=== PATIENT | male | born 1965 | race Caucasian/White ===

== ENCOUNTER → 2023-12-29 16:34 | Outpatient (BNVA) | payer SELFPAY | PROVIDERS: Visit Provider Nurse Practitioner Family | DX: N19 Unspecified kidney failure (principal) | CPT/HCPCS: 80053; 80074; 83880; 85025 ==

== ENCOUNTER 2023-12-31 11:23 | Inpatient (IN) | payer MEDICARE, SELFPAY ==
[2023-12-31] VITALS (7 sets, daily range): BP systolic 152–193; BP diastolic 93–154; PULSE 79–98; RESP 13–31; TEMP 36.5–37.1; O2SAT 92–99; BMI 22.6
--- NOTE | 2023-12-31 11:37 | ECG_ITS ---
[facility] Test Date: 2023-12-31 Pat Name: Filipe Gregory Department: Room: Gender: Male Transport Manager: : 1965 Requested By: Patricia Alva Order Number: [id number] Galilea MD: Lucien Pires M.D. Measurements Intervals [place] Rate: 91 P: 67 CA: 139 QRS: 21 QRSD: 102 T: 128 QT: 419 QTc: 516 Interpretive Statements SINUS RHYTHM POSSIBLE RIGHT ATRIAL ENLARGEMENT [0.25mV P-WAVE] LEFT ATRIAL ENLARGEMENT [-0.15mV P-WAVE IN V1/V2] LEFT VENTRICULAR HYPERTROPHY AND ST-T CHANGE [VOLTAGE CRITERIA PLUS ST/T ABNORMALITY] POSSIBLE SEPTAL MYOCARDIAL INFARCTION , OF INDETERMINATE AGE [30 ms Q WAVE IN V1/V2] No previous ECG available for comparison Electronically Signed On 01-02-2024 13:29:13 CDT by Lucien Pires M.D. [id number]
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
[2023-12-31 11:59] LABS: Basophils # 0.1 10^3/uL (0.0-0.1); Basophils % 0.9 %; Eosinophils # 0.2 10^3/uL (0.0-0.8); Eosinophils % 2.1 %; Hematocrit 41.5 % (37-53); Lymphocytes # 2.1 10^3/uL (0.8-4.8); Lymphocytes % 23.6 %; Mean Corpuscular HGB Conc 34.2 g/dL (30-55); Mean Corpuscular Hemoglobin 29.5 pg (27-33); Mean Corpuscular Volume 86.1 fl (82-101); Mean Platelet Volume 9.4 fL (7.4-10.4); Monocytes # 0.5 10^3/uL (0.2-0.9); Monocytes % 5.1 %; Neutrophils # 5.98 10^3/uL (1.8-7.7); Neutrophils % 68.1 %; Nucleated Red Blood Cells % 0 %; Platelet Count 329 10^3/cmm (157-399); Red Blood Count 4.82 10^6/uL (3.85-5.65); Red Cell Distribution Width 13.9 % (12.1-15.1); White Blood Count 8.78 10^3/uL (3.29-11.43)
[2023-12-31 12:12] LABS: INR 0.88 (0.8-1.2)
[2023-12-31 12:18] LABS: Troponin(5th) Baseline 72 ng/L (0-15)
[2023-12-31 12:38] LABS: Alanine Aminotransferase 13 U/L (0-41); Albumin Level 3.9 g/dL (3.5-5.2); Alkaline Phosphatase 90 U/L (40-130); Blood Urea Nitrogen 40 mg/dL (6-20); Calcium 8.8 mg/dL (8.5-10.5); Carbon Dioxide 28 mmol/L (22-29); Chloride 93 mmol/L (98-107); Creatinine Clr Calc Pharmacy 27.6888; Globulin 2.7 g/dL (1.3-4.6); Glomerular Filtration Rate 23.4 mL/min (90-130); Glucose 193 mg/dL (65-115); NT Pro B Type Natriuretic Pept 12548 pg/mL (0-125); Osmolality Calculated 293 mOsm/kg (285-295); Sodium 134 mmol/L (136-145); Total Bilirubin 0.6 mg/dL (0.15-1.2); Total Protein 6.6 g/dL (6.6-8.7)
[2023-12-31 12:40] LABS: Anion Gap 16.8 (5-19); Aspartate Amino Transferase 21 U/L (0-40); Potassium 3.8 mmol/L (3.5-5.1)
--- NOTE | 2023-12-31 13:18 | ECG_ITS ---
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 Measurements Intervals [place] Rate: 80 P: 62 NV: 145 QRS: 2 QRSD: 101 T: 139 QT: 398 QTc: 460 Interpretive Statements SINUS RHYTHM LEFT ATRIAL ENLARGEMENT [-0.15mV P-WAVE IN V1/V2] LEFT VENTRICULAR HYPERTROPHY AND ST-T CHANGE [VOLTAGE CRITERIA PLUS ST/T ABNORMALITY] POSSIBLE SEPTAL MYOCARDIAL INFARCTION , OF INDETERMINATE AGE [30 ms Q WAVE IN V1/V2] Compared to ECG 12/31/2023 11:37:36 No significant changes Electronically Signed On 01-02-2024 13:55:39 CDT by Lucien Pires M.D. [id number]
[2023-12-31 13:37] LABS: Troponin 5 2HR 66.79 ng/L (0-15)
[2023-12-31] MEDS: hyDRALAzine 20 mg/mL INJ 1 mL 10 MG IVP (13:46)
[2023-12-31 13:58] LABS: Troponin 5 2HR Delta -5.21 ABS# (0-10)
[2023-12-31] MEDS: nicardipine 20 MG/200 ML PREMIX 50 MG IV (15:09)
--- NOTE | 2023-12-31 15:31 | P.HP_ITS ---
Providers/Chief Complaint 2 Admitting Physician: Maria Alejandra Law MD Chief Complaint: dr navneet, heart and kidney failure History of Present Illness Filipe Gregory is a 58 year old male who moved to [place] this Friday from [place], has not seen a doctor in a long time, has been taking hydrochlorothiazide for high blood pressure stating that it has not been working, he does not remember being diagnosed with chronic kidney disease does not have any CHF history history presenting with chief complaint of generalized weakness and fatigue. No fever nausea vomiting or shortness of breath but stating that he took methamphetamine last Friday, he normally smokes 1 pack for 2 to 3 days. In the ER he was diagnosed with hypertensive emergency required Cardene drip at the time of evaluation slightly hypokalemic with creatinine 2.8 Hemoglobin A1c 6.2 he is prediabetic now no active chest pain troponin trending down Requested UA drug screen echo TSH EKG showing hypertensive LVH related T wave changes Review of Systems 2 Const: Reports: chills, body aches and malaise; Denies: fever(s) Eyes: Denies: change in vision ENMT: Denies: throat pain Card: Denies: chest pain Resp: Denies: dyspnea GI: Denies: abdominal pain Medications/Allergies Home Medications Medication Instructions Recorded Confirmed Last Taken Type amlodipine 10 mg tablet 10 mg PO DAILY #90 tabs 12/29/23 12/31/23 Unknown Rx Allergies Allergy/AdvReac Type Severity Reaction Status Date / Time No Known Allergies Allergy Verified 12/31/23 11:39 PFSH Acute 2 PFSH: Medical History (Updated 12/31/23 @ 16:51 by Maria Alejandra Law MD) CHF (congestive heart failure) Social History (Updated 12/31/23 @ 16:49 by Maria Alejandra aLw MD) Smoking and tobacco/nicotine status: current every day tobacco/nicotine user Substance/Drug Use: current Substance/Drug use type: Marijuana and Amphetamines Vitals/I&O/Wt Last Vital Signs Temp 97.7 F 12/31/23 11:35 Pulse 88 12/31/23 13:38 Resp 31 H 12/31/23 14:06 BP 191/154 12/31/23 14:06 Pulse Ox 98 12/31/23 14:06 O2 Del Method Room Air 12/31/23 13:38 Weight last 48 hrs Weight 71.668 kg Weight 67.585 kg Weight 67.585 kg Physical Exam 2 Narrative: Euvolemic GCS 15 Currently on Cardene drip Awake alert and S1, S2 Nonfocal neuroexam No audible stridor or wheezing Blood pressure 167/105-minute leeanna Currently on room air Pleasant cooperative Unkept appearance Malnourished Data 12/31/23 11:51 12/31/23 11:51 A&P Assessment and plan (1) Methamphetamine abuse: (2) Marijuana abuse: (3) Hypertension: (4) Hypertensive emergency: (5) Tobacco use disorder: (6) LOI (acute kidney injury): (7) New onset of congestive heart failure: Plan Hypertensive emergency Started on Cardene drip Add amlodipine, add metoprolol, not able to use lisinopril or spironolactone secondary to creatinine 2.8 Wean off Cardene drip gradually Target MAP reduction 25% in 6 hours then target blood pressure below 140/90 m mercury today and then less than 130/80 by tomorrow New onset CHF EF is unknown requested echo Clinically does not look fluid overloaded BNP is 12,000 Requested D-dimer Will add low-dose Lasix I will request UA, drug screen, TSH, B12 running on aldosterone His BNP is high Will request echo as well Hemoglobin A1c requested as well Patient has T wave changes related to LVH no active chest pain troponin trending down Living with his son, Noncompliant Active smoker Attestations 2 Medical Necessity Statement*: Requiring IV medication to bring his blood pressure down to normal range, anticipating more than 2 midnights in the hospital Diagnoses Methamphetamine abuse F15.10 Marijuana abuse F12.10 Hypertension I10 Hypertensive emergency I16.1 Tobacco use disorder F17.200 LOI (acute kidney injury) N17.9 New onset of congestive heart failure I50.9
--- NOTE | 2023-12-31 15:31 | US_ITS ---
WS: [id number] Exam: US renal BI* [id number] Date/Time of Exam: 12/31/2023 9:16 PM Reason For Exam: HTN The kidneys are of normal size, shape and location. No solid or cystic renal mass. No sign of renal o bstruction. The RIGHT kidney measures 8.8 x 4.4 x 5.3 cm. The LEFT kidney measures 8.6 x 4.2 x 4.4 cm . RIGHT renal cortex measures 1.8 cm in greatest thickness, the LEFT renal cortex 1.8 cm also. Prevoi d bladder volume was 77 mL. The patient could not void at the end of the exam. The prostate gland is unremarkable as visualized. No intrinsic or extrinsic bladder filling defects were demonstrated. Bila teral ureteral jets were observed in the bladder. US/US renal BI* [id number] IMPRESSION: 1. Unremarkable bilateral renal ultrasound.
--- NOTE | 2023-12-31 15:32 | USCV_ITS ---
Filipe Gregory Age: 58 Gender: M : 1965 Exam Date: 12/31/2023 20:10 Ordering Phys: Maria Alejandra Law MD Technologist: JOSE [place] [facility] [place]: UA BP: 167 / 105 HR: 96 Rhythm: Sinus Technical Quality: Adequate MEASUREMENTS (Male / Female) Normal Values 2D ECHO LV Diastolic Diameter PLAX 4.2 cm 4.2 - 5.9 / 3.9 - 5.3 cm IVS Diastolic Thickness 2.6 cm 0.6 - 1.0 / 0.6 - 0.9 cm IVS Systolic Thickness 3.0 cm LVPW Diastolic Thickness 2.3 cm 0.6 - 1.0 / 0.6 - 0.9 cm LVPW Systolic Thickness 2.8 cm LVOT Diameter 1.9 cm LV Ejection Fraction 2D Teich 51.1 % LV Ejection Fraction MOD 2C 56.9 % LV Ejection Fraction 2C AL 57.0 % LA Diameter 3.5 cm LA Sys Volume AL 67.5 cm cubed LA Sys Volume Index AL 35.9 cm cubed/m squared Aorta at Sinotubular Diameter 3.7 cm IVC Diameter 1.3 cm M-MODE LA Ao Ratio MM 1.1 AV Cusp Separation MM 2.4 cm DOPPLER AV Peak Velocity 153.0 cm/s LVOT Peak Velocity 124.0 cm/s AV Area Cont Eq vti 2.7 cm squared AV Area Cont Eq pk 2.3 cm squared MV Peak Velocity 120.0 cm/s MV Area PHT 6.2 cm squared Mitral E to A Ratio 0.7 TR Peak Velocity 251.0 cm/s TR Peak Gradient 25.2 mmHg TV Peak E Velocity 65.0 cm/s Right Atrial Pressure 3.0 mmHg Pulmonary Artery Systolic Pressu 28.2 mmHg PV Peak Velocity 142.0 cm/s FINDINGS Left Ventricle Normal left ventricular size, systolic function and wall thickness, with no regional wall motion abnormalities. Left ventricular ejection fraction of 60%. Grade I/IV diastolic dysfunction (abnormal relaxation filling pattern), normal to mildly elevated filling pressures. Right Ventricle The right ventricle is normal in size and function. Right Atrium The right atrium is normal in size. Left Atrium The left atrium is normal in size. Mitral Valve Structurally normal mitral valve without significant stenosis or prolapse. There is no mitral regurgitation. Aortic Valve Structurally normal aortic valve without significant sclerosis or stenosis. There is no aortic regurgitation. Tricuspid Valve Structurally normal tricuspid valve without significant stenosis or regurgitation. Pulmonary artery systolic pressure is normal. Pulmonic Valve Structurally normal pulmonic valve without significant stenosis. There is no pulmonic regurgitation. Pericardium Normal pericardium without effusion. Aorta Normal ascending aorta dimension. IVC The inferior vena cava appears normal. CONCLUSIONS 1-Normal left ventricular size, systolic function and wall thickness, with no regional wall motion abnormalities. Left ventricular ejection fraction of 60%. Grade I/IV diastolic dysfunction (abnormal relaxation filling pattern), normal to mildly elevated filling pressures. 2-There is no pericardial effusion. 3-No significant valve abnormalities. 4-Right atrial pressure is around 5 mm of mercury. Maria Alejandra Cope MD (Electronically Signed) Final Date: 01 January 2024 19:56 S
[2023-12-31 16:13] LABS: Estmated Average Glucose 131; Hemoglobin A1C 6.2 % (4.0-6.0)
[2023-12-31 16:53] LABS: Vitamin B12 519 pg/mL (232-1245)
[2023-12-31 17:05] LABS: Amphetamines Screen Urine Positive (Negative); Barbiturates Screen Urine Negative (Negative); Benzodiazepines Screen Urine Negative (Negative); Cocaine Screen Urine Negative (Negative); Opiate Screen Urine Negative (Negative); PCP Screen Urine Negative (Negative); THC Screen Urine Positive (Negative)
[2023-12-31 17:14] LABS: Add Urine Microscopic? YES; Bilirubin Urine Neg (Negative); Blood Urine Neg (Negative); Glucose Urine UA Norm (Normal); Ketones Urine 2+ (Negative); Leukocyte Esterase Urine Negative (Negative); Nitrate Urine Negative (Negative); Protein Urine Trace (Negative); Urine Appearance Clear (CLEAR); Urine Color Yellow (Yellow); Urobilinogen Urine Norm (Negative); pH Urine 5 (5-7)
[2023-12-31 17:16] LABS: Bacteria Urine TRACE /hpf; RBC Urine 0-4 /hpf (0-2); WBC Urine 0-4 /hpf (0-5)
[2023-12-31] MEDS: FUROsemide 10 mg/mL SDV 2mL 20 MG IVP (17:19)
[2023-12-31] MEDS: potassium chloride ER 20 mEq Tablet 40 MEQ PO (17:19)
[2023-12-31] MEDS: heparin 5,000 unit/mL INJ 1 mL 5000 UNIT SUBCUT (17:19)
--- NOTE | 2023-12-31 17:26 | PC.NURSE ---
ramon bestip paused for bp 118/97
--- NOTE | 2023-12-31 17:47 | ECG_ITS ---
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 Measurements Intervals [place] Rate: 94 P: 52 HI: 140 QRS: 24 QRSD: 97 T: 169 QT: 394 QTc: 494 Interpretive Statements SINUS RHYTHM WITH OCCASIONAL VENTRICULAR PREMATURE COMPLEXES POSSIBLE RIGHT ATRIAL ENLARGEMENT [0.25mV P-WAVE] LEFT ATRIAL ENLARGEMENT [-0.15mV P-WAVE IN V1/V2] LEFT VENTRICULAR HYPERTROPHY AND ST-T CHANGE [VOLTAGE CRITERIA PLUS ST/T ABNORMALITY] Compared to ECG 12/31/2023 13:18:15 Ventricular premature complex(es) now present Myocardial infarct finding no longer present ST (T wave) deviation still present Electronically Signed On 01-02-2024 13:57:11 CDT by Lucien Pires M.D. [id number]
[2023-12-31 18:54] LABS: D Dimer 0.46 ug/mLFEU (0-0.59)
[2023-12-31 19:06] LABS: Troponin 5 6HR 70.54 ng/L (0-15)
[2023-12-31 19:07] LABS: Troponin 5 6HR Delta -1.46 ng/L (0-12)
[2023-12-31] MEDS: nicardipine 20 MG/200 ML PREMIX 30 MG IV (19:24)
[2023-12-31] MEDS: metoprolol tartrate 25 mg Tablet PO (21:03)
[2023-12-31] MEDS: hyDRALAzine 25 mg Tablet PO (21:03)
[2024-01-01] VITALS (96 sets, daily range): BP systolic 104–154; BP diastolic 61–99; PULSE 56–89; RESP 6–29; TEMP 36.6–36.7; O2SAT 84–100; BMI 22.6
[2024-01-01] MEDS: nicardipine 20 MG/200 ML PREMIX 30 MG IV (02:14)
[2024-01-01] MEDS: heparin 5,000 unit/mL INJ 1 mL 5000 UNIT SUBCUT ×2 (05:24→17:52)
[2024-01-01 05:32] LABS: Basophils # 0.1 10^3/uL (0.0-0.1); Basophils % 0.7 %; Eosinophils # 0.3 10^3/uL (0.0-0.8); Eosinophils % 2.9 %; Hematocrit 38.6 % (37-53); Lymphocytes # 2.1 10^3/uL (0.8-4.8); Lymphocytes % 19.1 %; Mean Corpuscular HGB Conc 33.9 g/dL (30-55); Mean Corpuscular Hemoglobin 29.2 pg (27-33); Mean Platelet Volume 9.5 fL (7.4-10.4); Monocytes # 0.5 10^3/uL (0.2-0.9); Monocytes % 4.9 %; Neutrophils # 7.84 10^3/uL (1.8-7.7); Neutrophils % 72.1 %; Nucleated Red Blood Cells % 0 %; Platelet Count 309 10^3/cmm (157-399); Red Blood Count 4.49 10^6/uL (3.85-5.65); Red Cell Distribution Width 13.8 % (12.1-15.1); White Blood Count 10.86 10^3/uL (3.29-11.43)
[2024-01-01 05:53] LABS: Alanine Aminotransferase 18 U/L (0-41); Albumin Level 3.7 g/dL (3.5-5.2); Alkaline Phosphatase 95 U/L (40-130); Anion Gap 15.7 (5-19); Aspartate Amino Transferase 20 U/L (0-40); Blood Urea Nitrogen 40 mg/dL (6-20); Calcium 8.3 mg/dL (8.5-10.5); Carbon Dioxide 27 mmol/L (22-29); Chloride 97 mmol/L (98-107); Globulin 2.8 g/dL (1.3-4.6); Glomerular Filtration Rate 23.4 mL/min (90-130); Glucose 127 mg/dL (65-115); Magnesium 2.1 mg/dL (1.7-2.3); Osmolality Calculated 293 mOsm/kg (285-295); Phosphorus 4.4 mg/dL (2.5-4.5); Potassium 3.7 mmol/L (3.5-5.1); Sodium 136 mmol/L (136-145); Total Bilirubin 0.6 mg/dL (0.15-1.2); Total Protein 6.5 g/dL (6.6-8.7)
[2024-01-01 05:57] LABS: Creatinine Clr Calc Pharmacy 29.4757
[2024-01-01] MEDS: amlodipine 10 mg Tablet PO (08:33)
[2024-01-01] MEDS: metoprolol tartrate 25 mg Tablet PO ×2 (08:33→21:02)
[2024-01-01] MEDS: hyDRALAzine 25 mg Tablet PO (08:33)
--- NOTE | 2024-01-01 11:37 | P.PN_ITS ---
Subjective 2 Subjective: Echo report is still pending Patient is showing significant T wave version I will request stress test by tomorrow Blood pressure is slightly better today On oral hypertensive regimen No active chest pain Patient not complaining of any complaints at this point Troponin trending down TSH B12 normal Creatinine stable at 2.8 Vitals/I&O/Wt Last Vital Signs Temp 98.0 F 01/01/24 07:19 Pulse 67 01/01/24 07:19 Resp 20 H 01/01/24 07:19 BP 154/99 01/01/24 07:19 Pulse Ox 98 01/01/24 07:19 O2 Del Method Room Air 01/01/24 07:19 12/31/23 01/01/24 01/01/24 22:59 06:59 14:59 Intake Total 179.667 / 179.667 334.5 / 514.167 360 / 360 Output Total 700 / 700 500 / 1200 400 / 400 Balance -520.333 / -520.333 -165.5 / -685.833 -40 / -40 Weight last 48 hrs Weight 71.668 kg Weight 71.668 kg Weight 67.585 kg Weight 67.585 kg Physical Exam 2 Narrative: Pleasant cooperative Hypertensive Laying supine Nonfocal neuroexam S1, S2 Hypertension No active chest pain On Room air Data 01/01/24 05:03 01/01/24 05:03 A&P Assessment and plan (1) Methamphetamine abuse: (2) Marijuana abuse: (3) Hypertension: (4) Hypertensive emergency: (5) LVH (left ventricular hypertrophy): (6) New onset of congestive heart failure: (7) Renal failure: (8) LOI (acute kidney injury): (9) Tobacco use disorder: Plan Hypertensive emergency Off Cardene drip Continue oral antihypertensive tensive agent TSH B12 normal renin Aldosterone pending Will require stress test for tomorrow significant T wave changes noted could be related to LVH no active chest pain Unremarkable renal bilateral ultrasound Echo report is still pending LOI: Creatinine stable at 2.8 full code Disposition: Tomorrow if stress test negative Attestations 2 Medical Necessity Statement*: Continue medical management Diagnoses Methamphetamine abuse F15.10 Marijuana abuse F12.10 Hypertension I10 Hypertensive emergency I16.1 LVH (left ventricular hypertrophy) I51.7 New onset of congestive heart failure I50.9 Renal failure N19 LOI (acute kidney injury) N17.9 Tobacco use disorder F17.200
--- NOTE | 2024-01-01 11:44 | ECG_ITS ---
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 Interpretive Statements NAME OF STUDY: LEXISCAN SESTAMIBI STRESS TEST INDICATION: T WAVE INVERSION, PROCEDURE: At the baseline, the EKG revealed normal sinus rhythm with features of old septal wall [place]. ST-T changes.. The baseline heart was 60 bpm with a blood pressue of 160/92 mm of Hg Lexiscan was infused over a period of 20 seconds. A total of 0.4 milligrams of Lexiscan was infused. The stress phase was continued for a total of 5 minutes. Heart rate at the end of the stress phase was 57 bpm with a blood pressure 96/56 mm of Hg. The EKG at the peak infusion revealed more prominent ST-T changes.. Sestamibi was injected 20 seconds after the Lexiscan infusion. Heart rate at the end of the recovery phase was 56 bpm with a blood pressure of 120/78 mm of Hg. CONCLUSION: 1. Nonspecific EKG changes with the LexiScan infusion 2. No LexiScan induced chest pain or cardiac arrhythmia 3. Normal blood pressure and heart rate response 4. Sestamibi/sestamibi perfusion scan pending; see separate report. Electronically Signed On 01-04-2024 19:57:01 CDT by Jimy Arguello M.D. [id number]
[2024-01-01] MEDS: hyDRALAzine 50 mg Tablet 100 MG PO ×2 (15:39→21:02)
[2024-01-02] VITALS (52 sets, daily range): BP systolic 107–151; BP diastolic 66–90; PULSE 59–79; RESP 6–22; TEMP 36.4–36.6; O2SAT 94; BMI 22.6
[2024-01-02] MEDS: heparin 5,000 unit/mL INJ 1 mL 5000 UNIT SUBCUT (05:19)
[2024-01-02 05:23] LABS: Anion Gap 16.2 (5-19); Blood Urea Nitrogen 49 mg/dL (6-20); Calcium 8.4 mg/dL (8.5-10.5); Carbon Dioxide 23 mmol/L (22-29); Chloride 103 mmol/L (98-107); Glomerular Filtration Rate 24.4 mL/min (90-130); Glucose 130 mg/dL (65-115); Osmolality Calculated 301 mOsm/kg (285-295); Potassium 4.2 mmol/L (3.5-5.1); Sodium 138 mmol/L (136-145)
[2024-01-02 05:40] LABS: Creatinine Clr Calc Pharmacy 30.5674
[2024-01-02] MEDS: regadenoson 0.4 Mg/5 ml Syringe 0.400000000000000022 MG IVP (07:21)
[2024-01-02] MEDS: aminophylline 25 mg/mL SDV 10 mL IVP (07:25)
[2024-01-02] MEDS: hyDRALAzine 50 mg Tablet 100 MG PO ×2 (09:25→17:14)
[2024-01-02] MEDS: metoprolol tartrate 25 mg Tablet PO (09:25)
[2024-01-02] MEDS: amlodipine 10 mg Tablet PO (09:25)
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
[2024-01-02 11:00] LABS: HIV 1 & 2 Antibody Non-Reactive (Non-Reactiv); HIV 1 & 2 Antigen Non-Reactive (Non-Reactiv)
[2024-01-02 11:04] LABS: Hepatitis A Antibody IgM Non-Reactive (Nonreactive); Hepatitis B Core AB, Total Non-Reactive (Nonreactive); Hepatitis B Surface AB < 3.5 (11.5-1000); Hepatitis B Surface Antigen Non-Reactive (Nonreactive); Hepatitis C Virus Antibody Non-Reactive (Nonreactive)
--- NOTE | 2024-01-02 11:44 | NMCV_ITS ---
NM rakan perf SPECT r/s* [id number] Filipe Gregory Age: 58 Gender: M : 1965 Exam Date: 01/02/2024 06:40 Ordering Phys: Maria Alejandra Law MD Technologist: JIN Lewis Exam Location: [facility] Indications: T-wave inversion STRESS TEST Please see separate stress test report in [facility] for full findings IMAGE PROTOCOL Rest/Stress 1 Lexiscan Day Radiopharmaceutical Dose (mCi) Administration Site Administered by Rest: Tc-99m 10.7 IV JIN Lewis Sestamibi Stress:Tc-99m 32.6 IV JIN Lewis Sestamibi Rest: 02-Jan-2024 60 Discovery 630 Stress: 02-Jan-2024 30 Discovery 630 0.4mg Lexiscan. Supine position only as patient was unable to lay prone. SPECT RESULTS Technical Quality: Good Raw Data Analysis: Normal Image Corrections: Patient motion artifact - motion correction applied on rest Summed Stress Score: 0 Summed Rest Score: 3 Summed Difference Score: 0 PERFUSION FINDINGS There is a small sized, mostly fixed perfusion defect noted in the inferior and inferolateral woo. This is consistent with small sized area of prior infarct with minimal manuel-infarct ischemia seen in these woo. FUNCTIONAL RESULTS (calculated via Gated SPECT) Stress Image LV EF (%): 33 Stress EDV (mL):208 TID: 1.13 Stress ESV (mL):140 FUNCTIONAL FINDINGS: LV systolic function is moderate to severely reduced with EF of 33%. TID ratio is elevated. IMPRESSIONS 1. Small sized area of prior infarct with minimal manuel-infarct ischemia seen in the inferior and inferolateral woo. 2. LV systolic function is moderately to severely reduced with EF of 33% 3. TID ratio is elevated. This may represent subendocardial ischemia. Fabián Vale MD (Electronically Signed) Final Date: 02 January 2024 09:46 S
--- NOTE | 2024-01-02 17:41 | PC.NURSE ---
Discharge Note Patient discharged to [home] via [w/c to POV] accompanied by [his [id number]]. Discharge instructions reviewed with patient and/or bilingual sales representative. Mobile pharmacy medications and/or prescriptions provided. Belongings/home medications returned.
== END 2024-01-02 17:41 | disposition home or self-care (01) | DRG 305 ==
LOC: ER 13:16 → CSU 13:28
PROVIDERS: Admitting Provider Internal Medicine; Emergency Provider Emergency Medicine; Visit Provider Internal Medicine
DX: I16.1 Hypertensive emergency (principal); I50.30 Unspecified diastolic (congestive) heart failure; N17.9 Acute kidney failure, unspecified; I42.9 Cardiomyopathy, unspecified; I13.0 Hypertensive heart and chronic kidney disease with heart failure and stage 1 through stage 4 chronic kidney disease, or unspecified chronic kidney disease; N18.9 Chronic kidney disease, unspecified; F17.210 Nicotine dependence, cigarettes, uncomplicated; R73.03 Prediabetes; F15.10 Other stimulant abuse, uncomplicated; F12.10 Cannabis abuse, uncomplicated
CPT/HCPCS: 36415; 71045; 76770; 78452; 80048; 80053; 80306; 81001; 81015; 82088; 82607; 83036; 83735; 83880; 84100; 84244; 84443; 84484; 85025; 85378; 85610; 86705; 86706; 86709; 86803; 87340; 87806; 93005; 93017; 93306; 96372; 96374; 96375; 96376; 99285; A9500; J0280; J0360; J1644; J1940; J2785

== ENCOUNTER → 2024-02-17 15:02 | Outpatient (BNVA) | payer OTHER, SELFPAY | PROVIDERS: Visit Provider Internal Medicine | DX: R07.9 Chest pain, unspecified (principal) | CPT/HCPCS: 93005; 99204 ==

== ENCOUNTER → 2024-04-30 09:32 | Outpatient (BNVA) | payer MEDICARE, SELFPAY | PROVIDERS: PCP Nurse Practitioner Family; Visit Provider Internal Medicine | DX: I10 Essential (primary) hypertension (principal) | CPT/HCPCS: 80053 ==

== ENCOUNTER 2024-12-01 07:33 | Outpatient (CLI) | payer OTHER, SELFPAY ==
--- NOTE | 2024-12-01 07:36 | USCV_ITS ---
Filipe Gregory Age: 59 Gender: M : 1965 Exam Date: 12/01/2024 07:49 Ordering Phys: Kari Sanz MD Technologist: Exam [place] [facility] [place] Indication: sob cp htn BP: 140 / 80 HR: 67 Rhythm: Sinus Technical Quality: MEASUREMENTS (Male / Female) Normal Values 2D ECHO LV Diastolic Diameter PLAX 4.3 cm 4.2 - 5.9 / 3.9 - 5.3 cm IVS Diastolic Thickness 1.7 cm 0.6 - 1.0 / 0.6 - 0.9 cm IVS Systolic Thickness 2.2 cm LVPW Diastolic Thickness 1.5 cm 0.6 - 1.0 / 0.6 - 0.9 cm LVPW Systolic Thickness 2.1 cm LVOT Diameter 2.1 cm LV Ejection Fraction 2D Teich 68.6 % LV Ejection Fraction MOD 4C 67.7 % LV Ejection Fraction MOD 2C 70.1 % LV Ejection Fraction 2C AL 71.1 % LA Diameter 4.2 cm RA Systolic Volume 4C AL 33.9 ml RA Systolic Volume 4C MOD 32.7 ml LA Sys Volume AL 65.7 cm cubed LA Sys Volume Index AL 32.9 cm cubed/m squared Aorta at Sinotubular Diameter 3.3 cm IVC Diameter 1.9 cm M-MODE LA Ao Ratio MM 1.0 AV Cusp Separation MM 3.1 cm DOPPLER AV Peak Velocity 126.0 cm/s LVOT Peak Velocity 81.0 cm/s AV Area Cont Eq vti 2.6 cm squared AV Area Cont Eq pk 2.2 cm squared MV Peak Velocity 100.0 cm/s MV Area PHT 3.2 cm squared Mitral E to A Ratio 0.8 TV Peak Velocity 199.0 cm/s TR Peak Velocity 222.0 cm/s TR Peak Gradient 19.7 mmHg TV Peak E Velocity 109.0 cm/s PV Peak Velocity 107.0 cm/s FINDINGS Left Ventricle Normal left ventricular size and systolic function, EF 71%. Moderate concentric left ventricular hypertrophy. No regional wall motion abnormalities. Grade I/IV diastolic dysfunction (abnormal relaxation filling pattern), normal to mildly elevated filling pressures. Right Ventricle The right ventricle is normal in size and function. Right Atrium The right atrium is normal in size. Left Atrium The left atrium is normal in size. Mitral Valve Structurally normal mitral valve. Aortic Valve No gross abnormalities noted Tricuspid Valve No gross abnormalities noted Pulmonic Valve Pulmonic valve not well visualized. Pericardium Normal pericardium without effusion. Aorta Normal ascending aorta dimension. IVC The inferior vena cava appears normal. CONCLUSIONS Normal left ventricular size and systolic function, EF 71%. Moderate concentric left ventricular hypertrophy. No regional wall motion abnormalities. Grade I/IV diastolic dysfunction (abnormal relaxation filling pattern), normal to mildly elevated filling pressures. Normal cardiac chamber sizes. No gross valvular abnormalities Compared to the study from 12/31/2023, there may not be a significant change Dr Jimy Arguello MD FACC (Electronically Signed) Final Date: 03 Dec 2024 19:42 S
== END 2024-12-01 07:34 | disposition home or self-care (01) ==
PROVIDERS: PCP Family Medicine; Visit Provider Family Medicine
DX: Z01.89 Encounter for other specified special examinations (principal); I51.7 Cardiomegaly; R93.1 Abnormal findings on diagnostic imaging of heart and coronary circulation
CPT/HCPCS: 93306

== ENCOUNTER 2024-12-26 10:23 | Emergency (ER) | payer OTHER, SELFPAY ==
[2024-12-26] VITALS (7 sets, daily range): BP systolic 124–152; BP diastolic 79–90; PULSE 65–72; RESP 16; TEMP 36.6; O2SAT 96–100; BMI 25.8
--- NOTE | 2024-12-26 10:49 | CTR_ITS ---
PROCEDURE INFORMATION: Exam: CT Abdomen And Pelvis Without Contrast Exam date and time: 12/26/2024 11:13 AM Age: 59 years old Clinical indication: Abdominal pain; Prior surgery; Surgery date: 6+ months; Surgery type: Back; Additional info: Abd pain TECHNIQUE: Imaging protocol: Computed tomography of the abdomen and pelvis without contrast. Radiation optimization: All CT scans at this facility use at least one of these dose optimization techniques: automated exposure control; mA and/or kV adjustment per patient size (includes targeted exams where dose is matched to clinical indication); or iterative reconstruction. COMPARISON: US renal BI* [id number] 12/31/2023 8:35 PM RADIATION DOSE METRICS: Total DLP (mGy-cm): 721.77 FINDINGS: Liver: Normal. No mass. Gallbladder and biliary ducts: Normal. No calcified stones. No ductal dilation. Pancreas: Normal. No ductal dilation. Spleen: Normal. No splenomegaly. Adrenal glands: There is a left adrenal gland adenoma measuring 1 x 1.3 cm. Right adrenal gland is unremarkable. Kidneys and ureters: Normal. No hydronephrosis. Stomach and bowel: No small bowel loop dilatation. There are subtle perirectal stranding changes. Appendix: Appendix is normal. Intraperitoneal space: Unremarkable. No free air. No significant fluid collection. Vasculature: Mild calcified atherosclerotic changes are seen throughout the abdominal aorta. Lymph nodes: Unremarkable. No enlarged lymph nodes. Urinary bladder: There is bladder wall thickening measuring 8 mm. Reproductive: Unremarkable as visualized. Bones/joints: Posterior fusion from L3-L5 level. Severe lumbar spine degenerative changes. Soft tissues: Unremarkable. CT/CT abdomen pelvis wo con [id number] IMPRESSION: 1. There are subtle perirectal stranding changes. Early proctitis can not be excluded. Clinical correlation is advised. 2. There is bladder wall thickening measuring 8 mm. Finding is nonspecific. Cystitis versus underlying mucosal lesion. Clinical correlation is advised. 3. Mild calcified atherosclerotic changes are seen throughout the abdominal aorta. 4. Severe lumbar spine degenerative changes. COMMENTS: Consistent with the [employer]'s Incidental Findings Committee white paper (J Am Diomedes Radiol 2017): For any incidental adrenal lesion greater than or equal to 1 cm but less than or equal to 4 cm classified in this report as benign, likely benign, or containing fat (including classification as an adenoma or myelolipoma), no follow-up imaging is recommended per consensus recommendations based on imaging criteria. Further lab evaluation could be pursued if warranted based on clinical findings.
--- NOTE | 2024-12-26 11:09 | PC.NURSE ---
this nurse took over pt care from Staci BURR at 1105.
[2024-12-26 11:17] LABS: Basophils % 0.3 %; Eosinophils # 0.2 10^3/uL (0.0-0.8); Eosinophils % 1.2 %; Hematocrit 40.5 % (37-53); Lymphocytes # 1.7 10^3/uL (0.8-4.8); Lymphocytes % 11.5 %; Mean Corpuscular HGB Conc 32.6 g/dL (30-55); Mean Corpuscular Hemoglobin 30.1 pg (27-33); Mean Corpuscular Volume 92.5 fl (82-101); Mean Platelet Volume 9.7 fL (7.4-10.4); Monocytes # 0.8 10^3/uL (0.2-0.9); Monocytes % 5.6 %; Neutrophils % 81.1 %; Nucleated Red Blood Cells % 0 %; Platelet Count 221 10^3/cmm (157-399); Red Blood Count 4.38 10^6/uL (3.85-5.65); Red Cell Distribution Width 13.5 % (12.1-15.1); White Blood Count 14.56 10^3/uL (3.29-11.43)
[2024-12-26 11:18] LABS: Bilirubin Urine Negative (Negative); Blood Urine Negative (Negative); Glucose Urine UA Negative (Normal); Ketones Urine Negative (Negative); Leukocyte Esterase Urine Negative (Negative); Nitrate Urine Negative (Negative); Protein Urine 2+ (Negative); Specific Gravity, Urine 1.016 (1.005-1.030); Urine Appearance Clear (CLEAR); Urine Color Yellow (Yellow)
[2024-12-26] MEDS: sodium chloride 0.9% 1,000 ML 999 ML IV (11:22)
[2024-12-26 11:23] LABS: Add Urine Microscopic? YES; Bacteria Urine None Seen /hpf; RBC Urine 0-2 /hpf (0-2); Squamous Epithelial Cell Urine 0-5 /hpf (0-5); WBC Urine 0-5 /hpf (0-5)
[2024-12-26 11:33] LABS: Sperm Urine 1+ /hpf; UA Slide Review UA Slide Review Perf
[2024-12-26 11:37] LABS: Alanine Aminotransferase 32 U/L (0-41); Albumin Level 3.8 g/dL (3.5-5.2); Alkaline Phosphatase 68 U/L (40-130); Anion Gap 15.5 (5-19); Aspartate Amino Transferase 17 U/L (0-40); Blood Urea Nitrogen 29 mg/dL (6-20); Carbon Dioxide 22 mmol/L (22-29); Chloride 102 mmol/L (98-107); Creatinine Clr Calc Pharmacy 30.7201; Globulin 2.7 g/dL (1.3-4.6); Glomerular Filtration Rate 23.3 mL/min (90-130); Glucose 194 mg/dL (65-115); Lipase 18 U/L (13-60); Osmolality Calculated 291 mOsm/kg (285-295); Potassium 4.5 mmol/L (3.5-5.1); Sodium 135 mmol/L (136-145); Total Bilirubin 0.6 mg/dL (0.15-1.2); Total Protein 6.5 g/dL (6.6-8.7)
[2024-12-26] MEDS: metroNIDAZOLE 500 MG Tablet PO (13:20)
[2024-12-26] MEDS: ciprofloxacin 500 mg Tablet PO (13:20)
--- NOTE | 2024-12-26 17:11 | ED_ITS ---
HPI - GI Bleed 2 General: Chief complaint: GI Bleed Stated complaint: bleeding anally Time Seen by Provider: 12/26/24 10:38 History of Present Illness: This patient is a 59-year-old male who presents to the emergency department with bloody stools. Patient has had diarrhea today with bright red blood in the stool. He is having some lower abdominal pain as well. Never had any GI bleeding before. He does have a history of chronic renal insufficiency and hypertension. No past surgical history. He does smoke. Does not drink alcohol. Associated symptoms: Reports abdominal pain Related Data Previous Rx's ?Medication ?Instructions ?Recorded ciprofloxacin HCl 500 mg tablet 500 mg PO BID #20 tabs 12/26/24 (Cipro) metronidazole 500 mg tablet 500 mg PO QID #40 tabs Allergies Allergy/AdvReac Type Severity Reaction Status Date / Time No Known Allergies Allergy Verified 12/26/24 10:30 Review of Systems 2 General: Reports: 10 or more systems reviewed and unremarkable except in HPI and below GI: Reports: abdominal pain, diarrhea and hematochezia PFSH ED 2 PFSH: Medical History LVH (left ventricular hypertrophy) Tobacco use disorder Hypertension New onset of congestive heart failure LOI (acute kidney injury) Hypertensive emergency Marijuana abuse Methamphetamine abuse Renal failure CHF (congestive heart failure) Social History Smoking and tobacco/nicotine status: current every day tobacco/nicotine user Substance/Drug Use: current Physical Exam 2 Const: COMMON NORMALS: no acute distress, patient oriented x3 and no limitations GENERAL APPEARANCE: cooperative and comfortable HENMT: COMMON NORMALS: normocephalic, atraumatic, Normal nasal mucous membranes and turbinates present, moist oral mucous membranes and oropharynx normal HEAD & SCALP: normal to inspection, normocephalic and atraumatic F FAISAL & SINUS: normal facial exam NOSE: Normal nasal mucous membranes and turbinates present Eye: COMMON NORMALS: Equal, round and reactive pupils present, EOMs intact bilaterally and conjunctivae normal GENERAL EYE: appearance normal, both eyes and all related structures CONJUNCTIVA: Yes conjunctivae normal PUPIL: Yes Equal, round and reactive pupils present Neck/C-Spine: COMMON NORMALS: supple and no JVD Chest: COMMONS NORMALS: normal inspection of the chest Resp: COMMON NORMALS: normal respiratory effort and clear to auscultation bilaterally AUSCULTATION: clear to auscultation bilaterally Cardio: COMMON NORMALS: no JVD, regular rate, regular rhythm, No gallops present (Cardio), No murmurs present (Cardio) and No rub (Cardio) RATE: r egular rate RHYTHM: regular rhythm GI: COMMON NORMALS: Normal to inspection, nondistended, normoactive bowel sounds present, Soft to palpation and non-tender AUSCULTATION: Yes normoactive bowel sounds PALPATION: Yes Soft to palpation : COMMON NORMALS: Yes no CVA tenderness BLADDER/KIDNEY EXAM: Yes no CVA tenderness Back/Pelvis: COMMON NORMALS: no CVA tenderness and thoracic and lumbar spine normal to inspection Extremity: COMMON NORMALS: normal to inspection Neuro: COMMON NORMALS: patient oriented x3 and CN's II-XII intact bilaterally Psych: COMMON NORMALS: mental status grossly normal, Normal thought process present and cooperative THOUGHT PROCESS: Normal thought process present Skin: COMMON NORMALS: no rashes or lesions noted, turgor normal and no jaundice GENERAL SKIN EXAM: no rashes or lesions noted and turgor normal Course 2 Vital Signs: Vital signs: Vital Signs Temperature 97.8 F 12/26/24 10:30 Pulse Rate 71 12/26/24 13:29 Respiratory Rate 16 12/26/24 12:00 Blood Pressure 132/87 12/26/24 13:29 Pulse Oximetry 97 12/26/24 13:29 Oxygen Delivery Me thod Room Air 12/26/24 13:00 MDM - GI Bleed Medical Decision Making CBC revealed a white blood cell count of 14.6. CMP revealed a BUN of 29 creatinine of 2.8. These are stable. Lipase 18. Urinalysis normal. CT scan of the abdomen and pelvis was read by the radiologist as suggestive of proctitis. I discussed all the results with the patient and his family. I did place him on Flagyl and ciprofloxacin. Recommended he follow-up with his primary care provider in 1 week for recheck. If symptoms persist he may need GI referral with colonoscopy. He was discharged in stable condition. Lab Data 12/26/24 11:09 12/26/24 11:09 Radiology Impressions Abdomen/Pelvis CT 12/26/24 10:49 IMPRESSION: 1. There are subtle perirectal stranding changes. Early proctitis can not be excluded. Clinical correlation is advised. 2. There is bladder wall thickening measuring 8 mm. Finding is nonspecific. Cystitis versus underlying mucosal lesion. Clinical correlation is advised. 3. Mild calcified atherosclerotic changes are seen throughout the abdominal aorta. 4. Severe lumbar spine degenerative changes. COMMENTS: Consistent with the [employer]'s Incidental Findings Committee white paper (J Am Di[employer]es Radiol 2017): For any incidental adrenal lesion greater than or equal to 1 cm but less than or equal to 4 cm classified in this report as benign, likely benign, or containing fat (including classification as an adenoma or myelolipoma), no follow-up imaging is recommended per consensus recommendations based on imaging criteria. Further lab evaluation could be pursued if warranted based on clinical findings. Laboratory Results WBC 14.56 10^3/uL (3.29-11.43) H 12/26/24 11:09 RBC 4.38 10^6/uL (3.85-5.65) 12/26/24 11:09 Hgb 13.20 g/dL (11.27-16.99) 12/26/24 11:09 Hct 40.5 % (37-53) 12/26/24 11:09 MCV 92.5 fl (82-101) 12/26/24 11:09 MCH 30.1 pg (27-33) 12/26/24 11:09 MCHC 32.6 g/dL (30-55) 12/26/24 11:09 RDW 13.5 % (12.1-15.1) 12/26/24 11:09 Plt Count 221 10^3/cmm (157-399) 12/26/24 11:09 MPV 9.7 fL (7.4-10.4) 12/26/24 11:09 Neut % (Auto) 81.1 % 12/26/24 11:09 Lymph % (Auto) 11.5 % 12/26/24 11:09 [place] % (Auto) 5.6 % 12/26/24 11:09 Eos % (Auto) 1.2 % 12/26/24 11:09 Baso % (Auto) 0.3 % 12/26/24 11:09 Neut # (Auto) 11.80 10^3/uL (1.8-7.7) H 12/26/24 11:09 Lymph # (Auto) 1.7 10^3/uL (0.8-4.8) 12/26/24 11:09 [place] # (Auto) 0.8 10^3/uL (0.2-0.9) 12/26/24 11:09 Eos # (Auto) 0.2 10^3/uL (0.0-0.8) 12/26/24 11:09 Baso # (Auto) 0.0 10^3/uL (0.0-0.1) 12/26/24 11:09 Nucleated RBC % (auto) 0 % 12/26/24 11:09 Nucleated RBCs # 0.0 /100WBC 12/26/24 11:09 Sodium 135 mmol/L (136-145) L 12/26/24 11:09 Potassium 4.5 mmol/L (3.5-5.1) 12/26/24 11:09 Chloride 102 mmol/L (98-107) 12/26/24 11:09 Carbon Dioxide 22 mmol/L (22-29) 12/26/24 11:09 Anion Gap 15.5 (5-19) 12/26/24 11:09 BUN 29 mg/dL (6-20) H 12/26/24 11:09 Creatinine 2.8 mg/dL (0.7-1.2) H 12/26/24 11:09 GFR Calculation 23.3 mL/min (90-130) L 12/26/24 11:09 Glucose 194 mg/dL (65-115) H 12/26/24 11:09 Calculated Osmolality 291 mOsm/kg (285-295) 12/26/24 11:09 Calcium 9.0 mg/dL (8.5-10.5) 12/26/24 11:09 Total Bilirubin 0.6 mg/dL (0.15-1.2) 12/26/24 11:09 AST 17 U/L (0-40) 12/26/24 11:09 ALT 32 U/L (0-41) 12/26/24 11:09 Alkaline Phosphatase 68 U/L (40-130) 12/26/24 11:09 Total Protein 6.5 g/dL (6.6-8.7) L 12/26/24 11:09 Albumin 3.8 g/dL (3.5-5.2) 12/26/24 11:09 Globulin 2.7 g/dL (1.3-4.6) 12/26/24 11:09 Lipase 18 U/L (13-60) 12/26/24 11:09 Urine Color Yellow (Yellow) 12/26/24 10:58 Urine Appearance Clear (CLEAR) 12/26/24 10:58 Urine pH 5.0 (5-7) 12/26/24 10:58 Ur Specific [place] 1.016 (1.005-1.030) 12/26/24 10:58 Urine Protein 2+ (Negative) A 12/26/24 10:58 Urine Glucose (UA) Negative (Normal) 12/26/24 10:58 Urine Ketones Negative (Negative) 12/26/24 10:58 Urine Blood Negative (Negative) 12/26/24 10:58 Urine Nitrate Negative (Negative) 12/26/24 10:58 Urine Bilirubin Negative (Negative) 12/26/24 10:58 Urine Urobilinogen 1.0 mg/dL (Negative) 12/26/24 10:58 Ur Leukocyte Esterase Negative (Negative) 12/26/24 10:58 Urine RBC 0-2 /hpf (0-2) 12/26/24 10:58 Urine WBC 0-5 /hpf (0-5) 12/26/24 10:58 Ur Squamous Epith Cells 0-5 /hpf (0-5) 12/26/24 10:58 Amorphous Sediment Not Reportable 12/26/24 10:58 Urine Bacteria None seen /hpf (NONE) 12/26/24 10:58 Hyaline Casts 0.40 /lpf 12/26/24 10:58 Urine Sperm 1+ /hpf 12/26/24 10:58 All radiology interpretation(s) finalized by discharge Discharge Plan Discharge Patient Disposition: Home Clinical Impression: Acute proctitis Condition: Stable Prescriptions: New ciprofloxacin HCl [Cipro] 500 mg tablet 500 mg PO BID Qty: 20 0RF metronidazole 500 mg tablet 500 mg PO QID Qty: 40 0RF Discharge Orders: Discharge ED (Routine); Ordered 12/26/24 Ordered By: Jethro Marte Referrals: Kari Sanz MD [Primary Care Provider, Family Practice] Patient Instructions: Proctitis (ED) Activity Restrictions/Additional Instructions: Follow-up with your primary care provider within 1 week for recheck. You may need referral to GI if symptoms persist. Print Language: Bulgarian Coding Level of Care Code ED Director Human Services for [facility]
== END 2024-12-26 13:30 | disposition home or self-care (01) ==
PROVIDERS: Emergency Provider Emergency Medicine; PCP Family Medicine
DX: K62.89 Other specified diseases of anus and rectum (principal); Z72.0 Tobacco use; I11.0 Hypertensive heart disease with heart failure; I50.9 Heart failure, unspecified
CPT/HCPCS: 74176; 80053; 81001; 83690; 85025; 96360; 99284; J7030; J9999

== ENCOUNTER → 2025-02-01 10:29 | Outpatient (BNVA) | payer OTHER, SELFPAY | PROVIDERS: PCP Family Medicine; Visit Provider Surgery | DX: K62.89 Other specified diseases of anus and rectum (principal); N18.9 Chronic kidney disease, unspecified | CPT/HCPCS: 99204 ==

== ENCOUNTER → 2025-04-14 14:20 | Outpatient (BNVA) | payer OTHER, SELFPAY | PROVIDERS: PCP Family Medicine; Visit Provider Nurse Practitioner Family | DX: N18.4 Chronic kidney disease, stage 4 (severe) (principal); N18.5 Chronic kidney disease, stage 5 | CPT/HCPCS: 80069; 82043; 82306; 82310; 83970; 85025 ==